=== PATIENT | male | born 1975 | race Caucasian/White ===

== ENCOUNTER 2016-04-09 18:06 | Emergency (ER) | payer OTHER ==
[~2016-04-09] VITALS: Ht 177.8 cm; Wt 90.7 kg
[2016-04-09 19:20] VITALS: BP 125/78
--- NOTE | 2016-04-09 19:44 | PHYS DOC ---
Past Medical History Past Medical History: No Pertinent History Past Surgical History: No Surgical History Alcohol Use: None Drug Use: None Adult General Chief Complaint Chief Complaint: FOOT INJURY PAIN HPI HPI Patient is a 40 year old female presents emergency department stating that he was trying to move and arcade machine today with a sissy when it fell and landed on his right foot. He states he is having pain over the metatarsal areas of the foot. He is able to ambulate without difficulty. He denies any numbness or tingling into his toes. Has not taken anything for pain and discomfort. He does have abrasions noted to the first metatarsal area. Patient is unsure when his last tetanus immunization occurred. Review of Systems Review of Systems Constitutional: Denies fever or chills [] Eyes: Denies change in visual acuity, redness, or eye pain [] HENT: Denies nasal congestion or sore throat [] Respiratory: Denies cough or shortness of breath [] Cardiovascular: No additional information not addressed in HPI [] GI: Denies abdominal pain, nausea, vomiting, bloody stools or diarrhea [] : Denies dysuria or hematuria [] Musculoskeletal: Denies back pain. Right foot pain and discomfort Integument: Denies rash or skin lesions. Abrasion to the right 1st metatarsal Neurologic: Denies headache, focal weakness or sensory changes [] Current Medications Current Medications Current Medications Medications (Trade) Dose Ordered Sig/[facility] Start Time Stop Time Status Last Admin Dose Admin Diphtheria/ Tetanus/Acell Pertussis (Boostrix) 0.5 ml ONCE ONCE 04/09/16 20:00 04/09/16 20:01 04/09/16 19:56 0.5 ML Allergies Allergies Allergies Coded Allergies Type Severity Reaction Last Updated Verified No Known Drug Allergies 04/09/16 No Physical Exam Physical Exam Constitutional: Well developed, well nourished, no acute distress, non-toxic appearance. [] HENT: Normocephalic, atraumatic, bilateral external ears normal, oropharynx moist, no oral exudates, nose normal. [] Eyes: PERRLA, EOMI, conjunctiva normal, no discharge. [] Neck: Normal range of motion, no tenderness, supple, no stridor. [] Cardiovascular:Heart rate regular rhythm, no murmur [] Lungs & Thorax: Bilateral breath sounds clear to auscultation [] Abdomen: Bowel sounds normal, soft, no tenderness, no masses, no pulsatile masses. [] Skin: Warm, dry, no erythema, no rash. [] Back: No tenderness, no CVA tenderness. [] Extremities: No tenderness, no cyanosis, no clubbing, ROM intact, no edema. [] Neurologic: Alert and oriented X 3, normal motor function, normal sensory function, no focal deficits noted. [] Psychologic: Affect normal, judgement normal, mood normal. [] Current Patient Data Vital Signs Vital Signs Date Time Temp Pulse Resp B/P Pulse Ox O2 Delivery O2 Flow Rate FiO2 04/09/16 19:20 97.9 81 16 97 Room Air 97.9 EKG EKG [] Radiology/Procedures Radiology/Procedures [][facility] [address] [place] [address] IMAGING REPORT Signed PATIENT: EUGENIE TEJEDA ACCOUNT: [id number] : 1975 LOCATION: ER AGE: 40 SEX: M EXAM STATUS: REG ER ORD. PHYSICIAN: JESUS LUNA NP REASON: right foot pain after arcade game fell on it PROCEDURE: FOOT RIGHT 3V PROCEDURE Right foot radiographs. HISTORY Dropped arcade game on foot. Metatarsal pain. COMPARISON None. FINDINGS AP, lateral, and oblique views of the right foot. No acute fracture or dislocation is identified. No focal soft tissue swelling is seen. IMPRESSION No acute osseous abnormality identified. Electronically signed by: Iron Canales MD (Apr 09, 2016 19:53:41) DICTATED and SIGNED BY: IRON CANALES MD DATE: 04/09/161952 CC: JESUS LUNA BUTTONHOLE MAKER HAND; DANDY SMTIH MD ~ Course & Med Decision Making Course & Med Decision Making Pertinent Labs and Imaging studies reviewed. (See chart for details) Dr Duke requests to have radiology over the x-ray. X-rays were negative per radiologist. Patient will be placed in a posterior short leg splint with crutches as he states he has increased pain with weightbearing. Patient will be recommended to use ibuprofen for pain and discomfort ice packs on 20 minutes off 20 minutes several times a day. Elevation as much as possible. Patient discharged home in stable condition signs and symptoms to return back to emergency department as been provided. [] Dragon Disclaimer Dragon Disclaimer This electronic medical record was generated, in whole or in part, using a voice recognition dictation system. Departure Departure Impression: Primary Impression: Contusion of foot, right Disposition: 01 HOME, SELF-CARE Condition: STABLE Referrals: IRENE SKAGGS MD Patient Instructions: Foot Contusion, [id number] Additional Instructions: Home to rest. Ice packs on 20 minutes off 20 minutes several times a day. Elevation as much as possible. Tylenol or ibuprofen for pain and discomfort. No weightbearing on the right foot. Keep the splint clean and dry do not take the splint off and follow-up with orthopedic. Use the crutches to help with ambulation to not place any weight on the right foot. Follow-up with orthopedic in the next week. Return back to emergency prior signs symptoms of become worse. Splinting Splinting : Location: right foot Hand-Made Type: orthoglass Splint: posterior chort leg splint Pre-Proc Neuro Vasc Exam: normal Post-Proc Neuro Vasc Exam: normal JESUS LUNA NP Apr 09, 2016 19:44
--- NOTE | 2016-04-09 19:54 | RAD ---
PROCEDURE Right foot radiographs. HISTORY Dropped arcade game on foot. Metatarsal pain. COMPARISON None. FINDINGS AP, lateral, and oblique views of the right foot. No acute fracture or dislocation is identified. No focal soft tissue swelling is seen. IMPRESSION No acute osseous abnormality identified. Electronically signed by: Iron Cervantes MD (Apr 09, 2016 19:53:41)
[2016-04-09] MEDS ORDERED: DIPHTH,PERTUSS(ACELL),TET TOX 0.5 ML DISP.SYRIN. VAX IM ONE (20:00)
== END 2016-04-09 20:19 | disposition home or self-care (01) ==
LOC: ER 18:06
DX: S90.31XA Contusion of right foot, initial encounter (principal); W20.8XXA Other cause of strike by thrown, projected or falling object, initial encounter; Y93.89 Activity, other specified; Y99.8 Other external cause status; Y92.89 Other specified places as the place of occurrence of the external cause
CPT/HCPCS: 29515; 73630; 90471; 90715; 99284-25

== ENCOUNTER → 2018-09-11 | Outpatient (CLI) | payer SELFPAY ==
--- NOTE | 2018-09-11 11:16 | KCIC ---
EXAM: CT CORONARY CALCIUM SCORING. HISTORY: Coronary risk factors. Calcium scoring is requested. Dyspnea. COMPARISON: None. Exposure: One or more of the following individualized dose reduction techniques were utilized for this examination: 1. Automated exposure control 2. Adjustment of the mA and/or kV according to patient size 3. Use of iterative reconstruction technique FINDINGS: Limited noncontrast CT of the chest was performed for coronary calcium scoring. Refer to the worksheets for full detail. Coronary calcium scoring is as follows: LMA: 0. LAD: 0. LCX: 0. RCA: 0. PDA: 0. Total: 0.0. The included portions of the chest reveal the following. Bone windows reveal no suspicious lesions. Images of the upper abdomen reveal no acute abnormality. There are no pathologically enlarged mediastinal lymph nodes. There is no pleural or pericardial effusion. The heart is not enlarged. The lungs are clear bilaterally. IMPRESSION: 1. Coronary calcium score is 0. Electronically signed by: Dwayne Harris MD (09/11/2018 11:13 AM) [facility]
== END | disposition home or self-care (01) ==
LOC: KCIC CT 09:39
PROVIDERS: ATTEND Family Medicine
DX: Z13.6 Encounter for screening for cardiovascular disorders (principal); E78.5 Hyperlipidemia, unspecified; Z82.49 Family history of ischemic heart disease and other diseases of the circulatory system
CPT/HCPCS: 75571

== ENCOUNTER → 2019-01-17 | Outpatient (CLI) | payer OTHER ==
--- NOTE | 2019-01-17 12:41 | KCIC ---
HAND LEFT 3V History: Smashed left hand. Pain. Technique: 3 views left hand. Comparison: None. Findings: Normal alignment. No fracture. Soft tissues unremarkable. Impression: 1. No acute osseous abnormality. Electronically signed by: Kirit Amezcua DO (01/17/2019 12:38 PM) [facility]
== END | disposition home or self-care (01) ==
LOC: KCIC 09:33
PROVIDERS: ATTEND Family Medicine
DX: S60.222A Contusion of left hand, initial encounter (principal); X58.XXXA Exposure to other specified factors, initial encounter; Y93.89 Activity, other specified; Y92.89 Other specified places as the place of occurrence of the external cause; Y99.8 Other external cause status
CPT/HCPCS: 73130

== ENCOUNTER → 2020-07-23 | Outpatient (CLI) | payer OTHER ==
[2020-07-23 09:49] LABS: ALBUMIN 4.3 g/dL (3.4-5.0); ALBUMIN/GLOBULIN RATIO 1.3 (1.0-1.7); TOTAL PROTEIN 7.7 g/dL (6.4-8.2)
[2020-07-23 09:50] LABS: GFR 81.6; POTASSIUM 4.9 mmol/L (3.5-5.1); TOTAL BILIRUBIN 0.6 mg/dL (0.2-1.0)
[2020-07-23 09:51] LABS: CHOLESTEROL/HDL RATIO 7.7
[2020-07-24 00:08] LABS: HEMOGLOBIN A1C 5.1 % (4.8-5.6)
== END ==
LOC: LAB 09:02
PROVIDERS: ATTEND Family Medicine
DX: R73.01 Impaired fasting glucose (principal); E78.5 Hyperlipidemia, unspecified
CPT/HCPCS: 36415; 80053; 80061; 83036

== ENCOUNTER 2020-10-11 19:45 | Emergency (ER) | payer OTHER ==
[~2020-10-11] VITALS: Ht 177.8 cm; Wt 97.7 kg
[2020-10-11] MEDS ORDERED: LIDOCAINE/EPI/TETRACAINE TOPICAL GEL 3 ML. TP ONE (20:30)
[2020-10-11] MEDS ORDERED: HYDROcodone/APAP 5/325MG 1 TAB TABLET PO ONE (20:30)
--- NOTE | 2020-10-11 20:48 | PHYS DOC ---
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 Bleeding has stopped. Patient rates his pain a 7 out of 10. He states he gets a bit dizzy he has a headache. He denies LOC, nausea, vomiting, vision change, neck or back pain. 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 [] Eyes: Denies change in visual acuity. [] HENT: Denies nasal congestion or sore throat. [] Respiratory: Denies cough or shortness of breath. [] Cardiovascular: Denies chest pain or edema. [] GI: Denies abdominal pain, nausea, vomiting, bloody stools or diarrhea. [] : Denies dysuria. [] Musculoskeletal: Denies back pain or joint pain. [] Integument: Denies rash.+ Scalp laceration [] Neurologic: + headache, + dizziness, denies focal weakness or sensory changes. [] Endocrine: Denies polyuria or polydipsia. [] Lymphatic: Denies swollen glands. [] Psychiatric: Denies depression or anxiety. 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) Current Medications: Current Medications Medications (Trade) Dose Ordered Sig/[facility] Start Time Stop Time Status Last Admin Dose Admin Acetaminophen/ Hydrocodone Bitart (Lortab 5/325) 1 tab 1X ONCE 10/11/20 20:30 10/11/20 20:32 DC 10/11/20 20:41 1 TAB Tetracaine/ Epinephrine/ Lidocaine (Let (Qubn-[id number]-Psjbw) Gel) 3 ml 1X ONCE 10/11/20 20:30 10/11/20 20:31 DC 10/11/20 20:41 3 ML (JESUS MOORE APRN) Allergies: Allergies: Allergies Coded Allergies Type Severity Reaction Last Updated Verified No Known Drug Allergies 04/09/16 No (JESUS MOORE APRN) Physical Exam: PE: Constitutional: Well developed, well nourished, no acute distress, non-toxic appearance. [] HENT: Normocephalic, atraumatic, bilateral external ears normal, oropharynx moist, no oral exudates, nose normal. [] Eyes: PERRLA, EOMI, conjunctiva normal, no discharge. [] Neck: Normal range of motion, no tenderness, supple, no stridor. [] Cardiovascular:Heart rate regular rhythm, no murmur [] Lungs & Thorax: Bilateral breath sounds clear to auscultation [] Abdomen: Bowel sounds normal, soft, no tenderness, no masses, no pulsatile masses. [] Skin: Warm, dry, no erythema, no rash. Laceration. Edges approximated. [] Back: No tenderness, no CVA tenderness. [] Extremities: No tenderness, no cyanosis, no clubbing, ROM intact, no edema. [] Neurologic: Alert and oriented X 3, normal motor function, normal sensory function, no focal deficits noted. [] Psychologic: Affect normal, judgement normal, mood normal. [] (JESUS MOORE APRN) Current Patient Data: Vital Signs: Vital Signs Date Time Temp Pulse Resp B/P (MAP) Pulse Ox O2 Delivery O2 Flow Rate FiO2 10/11/20 20:41 17 96 Room Air 10/11/20 20:04 98.1 70 163/104 (94) 98.1 (JESUS MOORE APRN) EKG: EKG: [] (JESUS MOORE APRN) Radiology/Procedures: Radiology/Procedures: [] Impression: [facility] [address] [place] [address] IMAGING REPORT Signed PATIENT: EUGENIE TEJEDA ACCOUNT: [id number] : 1975 LOCATION: ER AGE: 44 SEX: M EXAM STATUS: PRE ER ORD. PHYSICIAN: JESUS MOORE APRN REASON: wood hit on head, dizziness, laceration PROCEDURE: CT HEAD AND CERVICAL SPINE WO Exam: CT head and cervical spine INDICATION: Wood hit on head TECHNIQUE: Sequential axial images through the head and cervical spine were obtained without the administration of IV contrast. Exposure: One or more of the following in the visualized dose reduction techniques were utilized for this examination: 1. Automated exposure control 2. Adjustment of the MA and/or KV according to patient size 3. Use of iterative of reconstructive technique Comparisons: None FINDINGS: Head: No focal parenchymal lesion or hemorrhage is identified. There is no midline shift or sulcal effacement. No acute vascular territory infarction is identified. Marcelo-white distinction is preserved. The ventricular system is within normal limits without compression hydrocephalus. The basal cisterns are well maintained. Mild contusion overlying the left frontal region. The visualized portions of the paranasal sinuses and mastoid air cells are well- pneumatized. No acute fractures. Cervical spine: Vertebral body heights and alignment are well-maintained. Fracture to the cervical spine is not identified. No significant spondylotic change in the cervical spine. Visualized paraspinal soft tissues are unremarkable. IMPRESSION: 1. Mild extra cranial soft tissue scalp contusion overlying the left frontal region without underlying osseous or intracranial abnormality. 2. Negative CT C-spine for acute traumatic injury. Electronically signed by: Sondra Baker MD (10/11/2020 9:02 PM) [facility] DICTATED and SIGNED BY: SONDRA BAKER MD DATE: 10/11/[id number] 0 (JESUS MOORE APRN) Course & Med Decision Making: Course & Med Decision Making Pertinent Labs and Imaging studies reviewed. (See chart for details) See HPI. Alert and oriented x4. Ambulatory with a steady gait. Speaks in full clear sentences. Follows all commands appropriately. Skin pink warm and dry. Vital signs are within normal limits. Laceration repair Location: Scalp laceration 6 cm Local anesthesia: Lets Interrupted sutures/Internal sutures: 10 taisha Nerve/ligament/muscle damage: None Cleaning and irrigation: Chlorhexidine and saline The appropriate timeout was taken. The area was prepped and draped in the usual sterile fashion. The wound was copiously irrigated with normal saline and chlorhexidine. Patient tolerated well without complication. Dressing was applied to the area follow-up education is given to observe for signs and symptoms of infection, bleeding and to follow-up promptly if these occur. Patient can return in 48 hours for a wound recheck. Sutures to be removed in 7 to 10 days. [] (JESUS MOORE APRN) Dragon Disclaimer: Dragon Disclaimer: This electronic medical record was generated, in whole or in part, using a voice recognition dictation system. (JESUS MOORE APRN) Departure Departure Impression: Primary Impression: Laceration of head Qualified Codes: S01.01XA - Laceration without foreign body of scalp, initial encounter Disposition: HOME / SELF CARE / HOMELESS Condition: STABLE Referrals: DANDY SMITH MD (PCP) Patient Instructions: Laceration Care, Adult, Staple Wound Closure, [id number] Additional Instructions: Follow-up with primary care provider. The taisha need to come out in 10 days. Watch for signs infection. Clean with usual shampoo or soap and water. If you begin having vomiting, severe dizziness or severe headache you need to return emergency room. Rest. Plenty of fluids. Stay out of the heat. Scripts Hydrocodone Bit/Acetaminophen (HYDROCODONE-APAP 5-325 ) 1 Tab Tablet 1 TAB PO PRN Q6HRS PRN for PAIN, #10 TAB 0 Refills Prov: JESUS MOORE APRN 10/11/20 Attending Signature Attending Signature I have reviewed the PA/TAKER OUT's note and plan of care. I was available for consultation as needed during the patient's visit in the emergency department. I agree with the clinical impression, plan, and disposition. (GLADYS DAVIS DO) JESUS MOORE APRN Oct 11, 2020 20:48 GLADYS DAVIS DO Oct 12, 2020 22:49
--- NOTE | 2020-10-11 21:04 | RAD ---
Exam: CT head and cervical spine INDICATION: Wood hit on head TECHNIQUE: Sequential axial images through the head and cervical spine were obtained without the admi nistration of IV contrast. Exposure: One or more of the following in the visualized dose reduction techniques were utilized for this examination: 1. Automated exposure control 2. Adjustment of the MA and/or KV according to patient size 3. Use of iterative of reconstructive technique Comparisons: None FINDINGS: Head: No focal parenchymal lesion or hemorrhage is identified. There is no midline shift or sulcal effaceme nt. No acute vascular territory infarction is identified. Marcelo-white distinction is preserved. The ventricular system is within normal limits without compression hydrocephalus. The basal cisterns are well maintained. Mild contusion overlying the left frontal region. The visualized portions of the paranasal sinuses and mastoid air cells are well-pneumatized. No acute fractures. Cervical spine: Vertebral body heights and alignment are well-maintained. Fracture to the cervical spine is not identified. No significant spondylotic change in the cervical spine. Visualized paraspinal soft tissues are unremarkable. IMPRESSION: 1. Mild extra cranial soft tissue scalp contusion overlying the left frontal region without underlyi ng osseous or intracranial abnormality. 2. Negative CT C-spine for acute traumatic injury. Electronically signed by: Sondra Aguilera MD (10/11/2020 9:02 PM) [facility]
[2020-10-11] MEDS ORDERED: HYDR-2761 PO ×2 (21:10→21:44)
[2020-10-11 21:31] VITALS: BP 160/106
== END 2020-10-11 21:59 | disposition home or self-care (01) ==
LOC: ER 19:45
DX: S01.01XA Laceration without foreign body of scalp, initial encounter (principal); W20.8XXA Other cause of strike by thrown, projected or falling object, initial encounter; Y93.89 Activity, other specified; Y92.89 Other specified places as the place of occurrence of the external cause; Y99.8 Other external cause status
CPT/HCPCS: 12002; 70450; 72125; 99285-25